=== PATIENT | male | born 1990 | race Hispanic/Latino ===

== ENCOUNTER 2018-10-10 21:06 | Emergency (ER) | payer BC ==
[~2018-10-10] VITALS: Ht 172.7 cm; Wt 95.3 kg
--- NOTE | 2018-10-10 22:32 | Diagnostic Imaging Report ---
EXAMINATION: CXR 2 VIEW - HOPD INDICATION: ^[id number] ^[id number] COMPARISON: None FINDINGS: PA and lateral views TUBES and LINES: None. LUNGS: Lungs are well inflated. There is no evidence of pneumonia or pulmonary edema. PLEURA: No pleural effusion or pneumothorax. HEART AND MEDIASTINUM: The cardiomediastinal silhouette is unremarkable. BONES AND SOFT TISSUES: No acute osseous lesion. Soft tissues are unremarkable. UPPER ABDOMEN: No free air under the diaphragm. IMPRESSION: No acute thoracic abnormality. Signed by: Dr. Nick Rutherford MD on 10/10/2018 10:28 PM
== END 2018-10-10 23:05 | disposition home or self-care (01) ==
LOC: FSED 21:06
DX: R20.2 Paresthesia of skin (principal); R06.00 Dyspnea, unspecified; F45.8 Other somatoform disorders; K70.9 Alcoholic liver disease, unspecified
CPT/HCPCS: 71046; 80048; 80076; 80307; 81003; 82553; 84484; 85025; 85379; 93005; 99283